=== PATIENT | male | born 1955 | race Caucasian/White ===

== ENCOUNTER → 2025-02-23 11:00 | Outpatient (REF) | payer OTHER, SELFPAY | LOC: CLAB 11:00 | PROVIDERS: ATTENDING PHYSICIAN Physician Assistant | DX: J32.8 Other chronic sinusitis (principal) | CPT/HCPCS: 87070; 87205 ==

== ENCOUNTER → 2025-03-25 09:09 | Outpatient (REF) | payer OTHER, SELFPAY | LOC: HWRAD 09:09 | PROVIDERS: OTHER PHYSICIAN Physician Assistant | DX: J01.90 Acute sinusitis, unspecified (principal) | CPT/HCPCS: 70486 ==

== ENCOUNTER → 2025-05-13 08:00 | Outpatient (REF) | payer OTHER, SELFPAY | LOC: CLAB 08:00 | PROVIDERS: ATTENDING PHYSICIAN Otolaryngology | DX: J32.8 Other chronic sinusitis (principal) | CPT/HCPCS: 87070; 87205 ==